=== PATIENT | female | born 1940 | race Caucasian/White ===

== ENCOUNTER → 2017-08-02 | Outpatient (CLI) | payer MEDICARE ==
[2017-08-02 18:23] LABS: Blood Urea Nitrogen 16 mg/dL (7-17)
--- NOTE | 2017-08-02 19:37 | CT ---
EXAMINATION TYPE: CT chest w con DATE OF EXAM: 08/02/2017 COMPARISON: To 5:15 HISTORY: SOB, hx of asthma CT DLP: 421.4 mGycm Automated exposure control for dose reduction was used. CONTRAST: CT scan of the chest is performed with IV Contrast, patient injected with 100 mL of Isovue 300. FINDINGS: There is a minimal reticular infiltrate in the lingula left upper lobe. Heart is enlarged. There is n o pleural effusion. There is no evidence of a pulmonary mass. There is no pericardial effusion. There is spurring in the thoracic spine. There is some nodular enhancement in the anterior right lobe of t he liver consistent with hemangioma. Thoracic aorta is atheromatous. 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 There is no evidence of dissection. There is no mediastinal adenopathy. There are no hilar masses. IMPRESSION: There is mild aneurysm of the ascending aorta that is stable compared to old exam. There is clearing of a large anterior mediastinal or right upper lobe cystic fluid collection compared to old exam. Cardiomegaly. Hepatic hemangioma appears stable.
== END | disposition home or self-care (01) ==
LOC: RADCTMAIN 17:33
PROVIDERS: ATTEND Internal Medicine Critical Care Medicine
DX: I51.7 Cardiomegaly (principal); I71.4 Abdominal aortic aneurysm, without rupture
CPT/HCPCS: 82565; 84520; 71260; 36415; Q9967

== ENCOUNTER → 2020-02-10 | Outpatient (CLI) | payer MEDICARE | END | disposition home or self-care (01) | LOC: LABWHC1 10:46 | PROVIDERS: ATTEND Family Medicine | DX: Z03.818 Encounter for observation for suspected exposure to other biological agents ruled out (principal) | CPT/HCPCS: U0003; C9803 ==

== ENCOUNTER → 2020-09-01 | Outpatient (CLI) | payer MEDICARE ==
--- NOTE | 2020-09-01 16:40 | US ---
EXAMINATION TYPE: US carotid duplex BILAT DATE OF EXAM: 09/01/2020 COMPARISON: NONE CLINICAL HISTORY: H81.4 vertigo of central origin. EXAM MEASUREMENTS: RIGHT: Peak Systolic Velocity (PSV) cm/sec ----- Right CCA: 53.9 ----- Right ICA: 61.3 ----- Right ECA: 79.1 ICA/CCA ratio: 1.1 RIGHT: End Diastole cm/sec ----- Right CCA: 16.5 ----- Right ICA: 20.5 ----- Right ECA: 12.7 LEFT: Peak Systolic Velocity (PSV) cm/sec ----- Left CCA: 52.4 ----- Left ICA: 113.5 ----- Left ECA: 50.3 ICA/CCA ratio: 2.2 elevated LEFT: End Diastole cm/sec ----- Left CCA: 13.1 ----- Left ICA: 38.4 ----- Left ECA: 7.5 VERTEBRALS (direction of flow): Right Vertebral: Antegrade Left Vertebral: Antegrade Rhythm: Normal Left ICA/CCA ratio 2.2 Moderate atherosclerotic plaque at the common carotid artery bifurcation on the right. Moderate ather osclerotic plaque of the left common carotid artery bifurcation. IMPRESSION: 1. Less than 50% stenosis of the right internal carotid artery. Moderate atherosclerotic plaque at th e right common carotid artery bifurcation. 2. 50-69% stenosis of the left internal carotid artery. The ICA to CCA ratio is 2.2, which is elevate d. This is likely at the lower end of this range. Moderate atelectatic plaque of the left common graham tid artery bifurcation. Criteria for Assigning % of Stenosis / Diameter reduction (Estimation based on the indirect measurements of the internal carotid artery velocities (ICA PSV). 1. Normal (no stenosis)=ICA PSV < 125 cm/s: ratio < 2.0: ICA EDV<40 cm/s. 2. Less than 50% stenosis=ICA PSV < 125 cm/s: ratio < 2.0: ICA EDV<40 cm/s. 3. 50 to 69% stenosis=ICA PSV of 125 to 230 cm/s: ration 2.0 ? 4.0: ICA EDV 40-100 cm/s. 4. Greater than 70% stenosis to near occlusion= ICA PSV > 230 cm/s: ratio > 4.0: ICA EDV > 100 cm/s. 5. Near occlusion= ICA PSV velocities may be low or undetectable: variable ratio and ICA EDV. 6. Total occlusion=unable to detect flow.
== END | disposition home or self-care (01) ==
LOC: RADUSWWP 15:38
PROVIDERS: ATTEND Family Medicine
DX: H81.4 Vertigo of central origin (principal); I65.23 Occlusion and stenosis of bilateral carotid arteries
CPT/HCPCS: 93880

== ENCOUNTER 2021-05-31 14:43 | Emergency (ER) | payer MEDICARE ==
[2021-05-31 15:00] VITALS: RESP 16; TEMP 97.9
[2021-05-31] MEDS ORDERED: SODIUM CHLORIDE 0.9% 1,000 ML IV STA (15:26)
[2021-05-31] MEDS ORDERED: DIAZEPAM 5 MG/ML 2 ML INJ IVP STA ×2 (15:26→18:20)
--- NOTE | 2021-05-31 15:29 | ED ---
General Adult HPI - General Chief complaint: Dizziness Stated complaint: Dizziness Time Seen by Provider: 05/31/21 15:00 Source: patient, EMS Mode of arrival: EMS Limitations: no limitations - History of Present Illness Initial comments: Dictation was produced using [employer] dictation software. please excuse any grammatical, word or spelling errors. Chief Complaint: 80-year-old female presents to the emergency department for dizziness History of Present Illness: Patient is a 80-year-old female presents to emergency department for dizziness. Patient states she has a history of vertigo. States that it started this morning. Patient states she has a history of benign positional vertigo. She states her symptoms are worse whenever she tries to stand up. She does feel dizzy at rest. She states she will comply this morning with the symptoms. She denies any history of strokes however has messed medical history of diabetes and dyslipidemia. Patient reports she does not take any medications for this. Denies any fever. No headache. No numbness and paresthesias to arms or legs. The ROS documented in this emergency department record has been reviewed and confirmed by me. Those systems with pertinent positive or negative responses have been documented in the HPI. All other systems are other negative and/or noncontributory. PHYSICAL EXAM: General Impression: Alert and oriented x3, acute distress secondary to vertigo and vomiting HEENT: Normocephalic atraumatic, extra-ocular movements intact, pupils equal and reactive to light bilaterally, mucous membranes moist. Cardiovascular: Heart regular rate and rhythm Chest: Able to complete full sentences, no retractions, no tachypnea Abdomen: abdomen soft, non-tender, non-distended, no organomegaly Musculoskeletal: Pulses present and equal in all extremities, no peripheral edema Motor: no focal deficits noted Neurological: CN II-XII grossly intact, no focal motor or sensory deficits noted, no nystagmus, no direction changing nystagmus, no abnormal test of skin, negative head impulse test Skin: Intact with no visualized rashes Psych: Normal affect and mood ED course: 80-year-old feel presents to the emergency department for vertigo. She reports that her symptoms are ongoing and constant. She does report having history of benign additional vertigo. vital signs upon arrival are within acceptable limits. EKG interpretation: Ventricular rate 73, sinus rhythm with sinus arrhythmia vs. afib without rvr. No TN prolongation, no QTC prolongation, no ST or T-wave changes noted. No old EKG for comparison. Laboratory evaluation obtained. CBC, coag panel unremarkable. Metabolic panel shows potassium 3.2 and magnesium 1.3. Patient given IV magnesium. Computed tomography scan of the brain shows hypoattenuating features in the bilateral cerebellum on the right worse than the left. CT angios shows no large vessel occlusion. Case discussed with Dr. Peacock who recommends that patient is not a candidate for further neuro interventional care. He states the patient is not a candidate for heparin. At this point there is concern of posterior CVA versus cerebellar mass. Patient given 10 mg of IV Decadron and 1 dose of 324 mg aspirin. Patient requires further subspecialty care. We do not have Neurosurgery at our facility. Spoke with Dr. Beck from [facility] who is willing to accept patients care. - Related Data Home Medications Medication Instructions Recorded Confirmed Ascorbic Acid [Vitamin C] 1,000 mg PO DAILY 05/31/21 05/31/21 Atorvastatin Calcium [Lipitor] 20 mg PO HS 05/31/21 05/31/21 Escitalopram [Lexapro] 20 mg PO DAILY 05/31/21 05/31/21 Latanoprost [Xalatan 0.005%] 1 drop BOTH EYES HS 05/31/21 05/31/21 Levothyroxine Sodium [Synthroid] 125 mcg PO DAILY 05/31/21 05/31/21 Losartan/Hydrochlorothiazide 1 tab PO DAILY 05/31/21 05/31/21 [Losartan-Hctz 100-25 mg Tab] Vitamin B Complex 1 cap PO DAILY 05/31/21 05/31/21 Zinc 50 mg PO DAILY 05/31/21 05/31/21 buPROPion XL [Wellbutrin XL] 150 mg PO DAILY 05/31/21 05/31/21 metFORMIN HCL 500 mg PO TID 05/31/21 05/31/21 Allergies Allergy/AdvReac Type Severity Reaction Status Date / Time amoxicillin Allergy Rash/Hives Verified 05/31/21 15:44 Review of Systems ROS Statement: Those systems with pertinent positive or pertinent negative responses have been documented in the HPI. ROS Other: All systems not noted in ROS Statement are negative. Past Medical History Past Medical History: Diabetes Mellitus, Hyperlipidemia, Thyroid Disorder Additional Past Medical History / Comment(s): vertigo History of Any Multi-Drug Resistant Organisms: None Reported Past Surgical History: Hysterectomy Additional Past Surgical History / Comment(s): thyroidectomy 01/2006, bronchogenic cyst emoval 07/2014, l hip replacement 10/2018, r ankle 05/06/2019 Past Psychological History: Anxiety, Depression Smoking Status: Former smoker Past Alcohol Use History: None Reported Past Drug Use History: None Reported General Exam Limitations: no limitations Course Vital Signs 05/31/21 14:51 Temperature 97.9 F Pulse Rate 61 Respiratory 16 Rate Blood Pressure 176/113 O2 Sat by Pulse 93 L Oximetry Medical Decision Making - Lab Data Result diagrams: 05/31/21 15:31 05/31/21 15:31 Lab Results 05/31/21 05/31/21 05/31/21 Range/Units 15:31 15:31 15:31 WBC 6.8 (3.8-10.6) k/uL RBC 4.27 (3.80-5.40) m/uL Hgb 13.1 (11.4-16.0) gm/dL Hct 39.6 (34.0-46.0) % MCV 92.6 (80.0-100.0) fL MCH 30.7 (25.0-35.0) pg MCHC 33.1 (31.0-37.0) g/dL RDW 12.6 (11.5-15.5) % Plt Count 215 (150-450) k/uL MPV 7.9 Neutrophils % 89 % Lymphocytes % 7 % Monocytes % 3 % Eosinophils % 0 % Basophils % 0 % Neutrophils # 6.1 (1.3-7.7) k/uL Lymphocytes # 0.5 L (1.0-4.8) k/uL Monocytes # 0.2 (0-1.0) k/uL Eosinophils # 0.0 (0-0.7) k/uL Basophils # 0.0 (0-0.2) k/uL PT 10.0 (9.0-12.0) sec INR 0.9 (<1.2) APTT 24.0 (22.0-30.0) sec Sodium 136 L (137-145) mmol/L Potassium 3.2 L (3.5-5.1) mmol/L Chloride 99 (98-107) mmol/L Carbon Dioxide 27 (22-30) mmol/L Anion Gap 10 mmol/L BUN 15 (7-17) mg/dL Creatinine 0.66 (0.52-1.04) mg/dL Est GFR (CKD-EPI)AfAm >90 (>60 ml/min/1.73 sqM) Est GFR (CKD-EPI)NonAf 85 (>60 ml/min/1.73 sqM) Glucose 191 H (74-99) mg/dL Calcium 9.9 (8.4-10.2) mg/dL Magnesium 1.3 L (1.6-2.3) mg/dL Disposition Clinical Impression: Dizziness, Afib Disposition: OTHER INSTITUTION NOT DEFINED Condition: Fair Referrals: Escobar Scott DO [Primary Care Provider] - 1-2 days - Out of Hospital Transfer - Req. Specs Out of Hospital Transfer - Requested Specifics: Other Emergency Center ([facility])
[2021-05-31 15:49] LABS: Basophils % (A) 0 %; Eosinophils % (A) 0 %; HCT 39.6 % (34.0-46.0); HGB 13.1 gm/dL (11.4-16.0); Lymphocytes # (A) 0.5 k/uL (1.0-4.8); Lymphocytes % (A) 7 %; MCH 30.7 pg (25.0-35.0); MCHC 33.1 g/dL (31.0-37.0); MCV 92.6 fL (80.0-100.0); Mean Platelet Volume 7.9; Monocytes # (A) 0.2 k/uL (0-1.0); Monocytes % (A) 3 %; Neutrophils # (A) 6.1 k/uL (1.3-7.7); Neutrophils % (A) 89 %; Platelet Count 215 k/uL (150-450); RBC 4.27 m/uL (3.80-5.40); RDW 12.6 % (11.5-15.5); WBC 6.8 k/uL (3.8-10.6)
[2021-05-31 15:57] LABS: INR 0.9 (<1.2)
[2021-05-31 16:00] LABS: African American GFR (CKD) >90 (>60 ml/min/1.73 sqM); Anion Gap 10 mmol/L; Blood Urea Nitrogen 15 mg/dL (7-17); Calcium 9.9 mg/dL (8.4-10.2); Carbon Dioxide 27 mmol/L (22-30); Chloride 99 mmol/L (98-107); Glucose 191 mg/dL (74-99); Magnesium 1.3 mg/dL (1.6-2.3); Non-African American GFR(CKD) 85 (>60 ml/min/1.73 sqM); Potassium 3.2 mmol/L (3.5-5.1); Sodium 136 mmol/L (137-145)
--- NOTE | 2021-05-31 17:16 | CT ---
EXAM: CT brain wo con CLINICAL HISTORY: Dizziness, nausea and vomiting. COMPARISON: None available TECHNIQUE: Contiguous axial noncontrast images of the brain were obtained. Coronal and sagittal refor mats were generated and reviewed. Automated dose control was used for this exam. FINDINGS: There is moderate hypoattenuating area in the right greater than left cerebellar with irregular morph ology. No evidence for intracranial hemorrhage, significant mass effect or midline shift. There is mi ld white matter disease and parenchymal volume loss. 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 Ventricular size and configuration is within normal limits for degree of parenchymal volume. The paranasal sinuses are clear. The mastoid air cells are clear. No evidence for calvarial fracture. IMPRESSION: Indeterminate cerebellar hypoattenuating area. Infarct or underlying lesions cannot be excluded. Asaf mmend contrast enhanced MRI for further evaluation. Findings were reported to caring ED physician by me at the time of dictation.
[2021-05-31] MEDS ORDERED: MAGNESIUM SULFATE-D5W PMX 1 GM in DEXTROSE/WATER 1 100ML.BAG IVPB SCH (17:45)
--- NOTE | 2021-05-31 17:55 | CT ---
EXAMINATION TYPE: CT angio head neck DATE OF EXAM: 05/31/2021 HISTORY: dizziness, nausea, vomiting COMPARISON: None available. CT DLP: 537.5 mGycm. Automated Exposure Control for Dose Reduction was Utilized. TECHNIQUE: CTA scan of the neck is performed with IV Contrast, patient injected with 65cc mL of Isov ue 370, axial images are obtained, coronal and sagittal reformatted images are reviewed. 3D reconstru cted images are created on an independent workstation and reviewed. FINDINGS: There is scattered mild to moderate atherosclerotic calcifications, most notable at the carotid bulbs . There is less than 50% stenosis of the proximal ICAs, left greater than right. Otherwise normal thr ee-vessel branching of the aorta. Otherwise no evidence of high-grade stenosis, dissection or aneurys m seen in the bilateral common carotid, cervical internal carotid and vertebral arteries. There is no evidence of high-grade stenosis, dissection or aneurysm in the intracranial internal graham tid arteries, anterior, middle and posterior cerebral arteries as well as in the imaged vertebral and basilar arteries. The communicating arteries are unremarkable. IMPRESSION: No acute abnormality of the CTA head/neck. NASCET criteria was used in interpretation of this exam?
[2021-05-31] MEDS ORDERED: ASPIRIN 81 MG PO STA (18:05)
[2021-05-31] MEDS ORDERED: DEXAMETHASONE SOD PHOSPHATE 10 MG/ML 1 ML VIAL IV STA (18:11)
[2021-05-31 18:50] VITALS: BP 149/82; PULSE 66
== END 2021-05-31 18:46 | disposition other institution (70) ==
LOC: EC 14:43
DX: I48.91 Unspecified atrial fibrillation (principal); R42 Dizziness and giddiness; I10 Essential (primary) hypertension; E11.9 Type 2 diabetes mellitus without complications; Z87.891 Personal history of nicotine dependence; Z88.0 Allergy status to penicillin
CPT/HCPCS: 99284 ×2; 96374 ×2; 96375 ×2; 96376 ×2; 96361 ×2; 36415; 93005; 80048; 83735; 85025; 85610; 85730; 70496; 70450; 70498; J1100; J3360; J3475; Q9967